=== PATIENT | female | born 1965 | race Two or more races ===

== ENCOUNTER 2021-04-25 15:49 | Outpatient (REF) | payer MEDICAID, OTHER, SELFPAY ==
--- NOTE | ~2021-04-25 | MM_ITS ---
EXAMINATION: MM SCREENING DIGITAL BREAST TOMOSYNTHESIS, BILATERAL CLINICAL INFORMATION: Screening. Asymptomatic. No known family history of breast cancer. The lifetime risk of breast cancer based on the Tyrer-Cuzick Model is 5%. COMPARISON: None. TECHNIQUE: Digital breast tomosynthesis is performed in both the craniocaudal and mediolateral oblique views. Synthesized 2D images are generated from the tomosynthesis. FINDINGS: There are scattered areas of fibroglandular density (ACR BI-RADS breast composition Category b). There are no significant masses, abnormal calcifications, or other abnormalities. MM/MM tomosynthesis screening BI IMPRESSION: No mammographic evidence of malignancy. ASSESSMENT: BI-RADS 1: Negative RECOMMENDATION: Routine annual mammography screening. This patient's information was entered into a reminder system with a target due date for their next mammogram.
== END 2021-04-25 15:50 | disposition home or self-care (01) ==
LOC: HO.MAMMO 15:49
PROVIDERS: Visit Provider Nurse Practitioner
DX: Z12.31 Encounter for screening mammogram for malignant neoplasm of breast (principal)
CPT/HCPCS: 77063; 77067

== ENCOUNTER 2022-06-18 08:26 | Outpatient (REF) | payer OTHER, SELFPAY ==
[2022-06-18 11:02] LABS: MANUAL DIFF FLAG NO
[2022-06-18 11:22] LABS: Basophils Percent Auto 0.2 % (0-2); Eosinophils Absolute Auto 0.1 X10*3/uL (0.0-0.4); Eosinophils Percent Auto 0.9 % (0-4); Hematocrit 40.8 % (37.0-47.0); Hemoglobin 13.7 g/dl (12.0-16.0); Imm Gran Abs Auto 0.03 X10*3/uL (0.00-0.03); Imm Gran Pct Auto 0.3 % (0.0-0.4); Lymphocytes Percent Auto 23.2 % (20-40); Mean Corpuscular HGB Conc 33.6 g/dl (31.0-35.0); Mean Corpuscular Hemoglobin 26.7 pg (27.0-33.0); Mean Corpuscular Volume 79.4 fL (80.0-98.0); Mean Platelet Volume 10.6 fL (9.4-12.3); Monocytes Absolute Auto 0.7 X10*3/uL (0.1-1.2); Monocytes Percent Auto 7.5 % (2-11); Neutrophils Absolute Auto 5.9 x10*3/uL (2.0-8.3); Neutrophils Percent Auto 67.9 % (45-73); Platelet Count 395 X10*3/uL (160-400); Red Blood Count 5.14 X10*6/uL (4.20-5.50); Red Cell Distribution Width 14.7 % (11.0-16.0); White Blood Count 8.7 X10*3/uL (4.8-10.8)
[2022-06-18 11:44] LABS: Alanine Aminotransferase 17 U/L (0-31); Albumin Level 4.5 g/dL (3.5-5.0); Alkaline Phosphatase 73 U/L (39-117); Anion Gap 14 (12-20); Aspartate Amino Transferase 16 U/L (5-31); Bilirubin Total 0.7 mg/dL (0.0-1.0); Blood Urea Nitrogen 9 mg/dL (9-16); Calcium 9.9 mg/dL (8.4-10.2); Carbon Dioxide 27 mmol/L (22-29); Chloride 105 mmol/L (96-108); Cholesterol 195 mg/dL; Estimated Glomerular Filt Rate > 60; Glucose Fasting 107 mg/dL (60-99); HDL Cholesterol 57 mg/dL; LDL Cholesterol Calculated 124 mg/dl; Potassium 4.2 mmol/L (3.3-5.1); Sodium 142 mmol/L (135-145); Total Protein 7.7 g/dL (6.5-8.0); Triglycerides 73 mg/dL
[2022-06-18 12:30] LABS: TSH reflex Free T4 1.27 uIU/mL (0.32-4.0); Vitamin B12 > 2000 pg/mL (200-900)
[2022-06-24 23:14] LABS: Vitamin D 25-OH, D2 <4 ng/mL; Vitamin D 25-OH, D3 28 ng/mL; Vitamin D 25-OH, Total 28 ng/mL (30-100)
== END 2022-06-18 08:27 | disposition home or self-care (01) ==
LOC: HO.HMGCLDS 08:26
PROVIDERS: PCP Internal Medicine; Visit Provider Internal Medicine
DX: Z00.01 Encounter for general adult medical examination with abnormal findings (principal); E66.09 Other obesity due to excess calories; I10 Essential (primary) hypertension
CPT/HCPCS: 36415; 80053; 80061; 82306; 82607; 84443; 85025

== ENCOUNTER 2022-08-11 15:39 | Outpatient (REF) | payer OTHER, SELFPAY ==
--- NOTE | ~2022-08-11 | MM_ITS ---
EXAMINATION: MM SCREENING DIGITAL BREAST TOMOSYNTHESIS, BILATERAL CLINICAL INFORMATION: Screening. Asymptomatic. The lifetime risk of breast cancer based on the Tyrer-Cuzick Model is 5%. COMPARISON: Mammography: 04/25/2021 (new baseline) TECHNIQUE: Digital breast tomosynthesis is performed in both the craniocaudal and mediolateral oblique views along with computer-aided detection (CAD). Synthesized 2D images are generated from the tomosynthesis. FINDINGS: There are scattered areas of fibroglandular density (ACR BI-RADS breast composition Category b). Parenchymal pattern is similar to prior exam. There is no developing density or architectural abnormality. The axilla and skin contours are unremarkable. No significant changes. There are no significant masses, abnormal calcifications, or other abnormalities. The axilla and skin contours are unremarkable. No significant changes. MM/MM tomosynthesis screening BI IMPRESSION: No mammographic evidence of malignancy. ASSESSMENT: BI-RADS 1: Negative RECOMMENDATION: Routine annual mammography screening. This patient's information was entered into a reminder system with a target due date for their next mammogram.
== END 2022-08-11 15:40 | disposition home or self-care (01) ==
LOC: HO.MAMMO 15:39
PROVIDERS: PCP Internal Medicine; Visit Provider Internal Medicine
DX: Z12.31 Encounter for screening mammogram for malignant neoplasm of breast (principal)
CPT/HCPCS: 77063; 77067

== ENCOUNTER 2022-10-12 14:20 | Outpatient (AMB) | payer OTHER, SELFPAY ==
--- NOTE | 2022-10-12 14:34 | MHC.OFFVIS ---
Intake Vital Signs 10/12/22 14:36 Height 5 ft 1 in Weight 174 lb BMI 32.9 BP 126/88 Blood Pressure Location Rt brachial Position Sitting Intake Visit Reasons: NPV-other symptos inv apperance and behavior-Confi Intake Note: patient presents for new patient evaluation Allergies No Known Allergies Allergy (Verified 10/12/22 14:37) Medication List - Last Reconciled 10/12/22 by Elvia Arthur MD amlodipine 10 mg PO DAILY bisoprolol fumarate 5 mg PO DAILY cholecalciferol (vitamin D3) 25 mcg PO DAILY 90 days losartan 50 mg PO DAILY HPI HPI Comments History of Present Illness Details A certified medical physics researcher Erin Saxena helped with todays appointment. 57y/o female comes for neurological evaluation .She moved from [facility] 2020 . she is accompanied by her daughter who also helps with the history . The patient was seen by neurologist in for behavior change and was diagnosed with dementia as per PCP notes . she was treated with Vitamins ?. The patient denies any memory issues. Her daughter reports that she is paranoid about her . she thinks he is not paying attention and is having an affair. Her problems started after she had a dental procedure last year and she started having paronia. she went back to diagnosed with Vit b 12 deficiency and treated. she is still very focused on her cheating on her. [facility] Medical History (Updated 10/12/22 @ 15:18 by Elvia Arthur MD) Cognitive and behavioral changes Snoring Surgical History H/O tubal ligation H/O: hysterectomy Social History Housing: House Alcohol intake: current Patient Tobacco Use Status: Never used Tobacco e-Cigarette/Vaping Use: Never Used Current occupational status: employed Cognitive needs: No Hearing needs: No Vision needs: Yes Review of Systems Const Denies chills and Denies fever(s) ENT Denies epistaxis and Denies nasal discharge Card Denies chest pain Resp Denies chest congestion, Denies cough and Denies hemoptysis GI Denies diarrhea and Denies nausea Skin/Breast Denies rash Neuro Reports no additional complaints Psych Reports no additional complaints Endo Reports no additional complaints Physical Exam Const General: cooperative, healthy appearing, comfortable and no acute distress Nutritional Appearance: overweight Orientation/consciousness: patient oriented x3 Eyes Pupils: Equal, round and reactive pupils present Neuro General: patient oriented x3, tone normal, moves all extremities and no focal motor deficits Cranial nerves: Yes Facial sensation intact/muscles of mastication intact, Yes Equal, round and reactive pupils present, No Bilaterally intact EOM present, Yes Nystagmus not present, Yes Normal facial strength present and Yes Midline tongue present Gait exam (Neuro): Normal gait present Motor exam (neuro): 5/5 motor strength present throughout and Normal motor muscle tone present throughout Deep tendon reflexes (DTR's): Right triceps reflex intensity grade: 1+, Left triceps reflex intensity grade: 1+, Rt Biceps (C5, C6): 1+, Left biceps reflex intensity grade: 1+, Right brachioradialis reflex intensity grade: 1+, Left brachioradialis reflex intensity grade: 1+ and Right patellar reflex intensity grade: 1+ Coordination: [id number] test normal Psych Appearance: grossly normal Affect: normal affect Orientation What is the (year) (season) (date) (day) (month)?: year, season, date, day and month Where are we (state) (county) (town or city) (hospital) (floor)?: state, county, town or city, hospital/clinic and floor Registration Name of 3 unrelated objects clearly and slowly, then ask patient to repeat all 3 of them. (1st repeat determines score. Make sure they can repeat all three): object 1, object 2 and object 3 Attention & Calculation (CHOOSE ONE) Spell WORLD backwards (DLROW): 3 letters Recall Ask patient to repeat the 3 items from question #3.: object 1 Language Show patient a wristwatch & ask what it is. Repeat for pencil.: watch and pencil Ask the patient to repeat the phrase 'No ifs, ands, or buts' after you.: correct Ask the patient to 'take a piece of paper with their right hand' 'fold paper in half' 'place paper on floor': take paper in right hand Print the sentence 'CLOSE YOUR EYES' on a piece. If patient actually closes eyes then score.: followed written direction Give patient a blank piece of paper & ask to write a sentence. Score if it contains a noun & verb.: sentence contains subject and verb Ask patient to copy figure of intersecting pentagons exactly. Score if all 10 angles & 2 intersects are included.: all 10 angles present & 2 are intersected Score Score: 24 Assessment & Plan Assessment & Plan (1) Cognitive and behavioral changes: Comment: paranoia Code(s): R41.89 - Other symptoms and signs involving cognitive functions and awareness; R46.89 - Other symptoms and signs involving appearance and behavior (2) Snoring: Code(s): R06.83 - Snoring Plan MRI Brain report for review, she did well on cognitive testing EEG Psychology referral consider sleep study Orders: Orders EEG electroencephalogram Today R41.89 - Other symptoms and signs involving cognitive functions and awareness, R46.89 - Other symptoms and signs involving appearance and behavior RT home sleep study Today R06.83 - Snoring, R41.89 - Other symptoms and signs involving cognitive functions and awareness, R46.89 - Other symptoms and signs involving appearance and behavior Coding Level of Care Code New Pt Level 4 (40556) Diagnoses Cognitive and behavioral changes R41.89; R46.89 Snoring R06.83
[2022-10-12 14:36] VITALS: BP 126/88; BMI 32.9
== END 2022-10-12 15:26 | disposition home or self-care (01) ==
LOC: HO.HSMS 14:20
PROVIDERS: PCP Internal Medicine; Visit Provider Psychiatry & Neurology Neurology
DX: R41.89 Other symptoms and signs involving cognitive functions and awareness (principal); R46.89 Other symptoms and signs involving appearance and behavior; R06.83 Snoring
CPT/HCPCS: 99204

== ENCOUNTER → 2022-10-12 14:20 | Outpatient (BNVA) | payer OTHER, SELFPAY | PROVIDERS: PCP Internal Medicine; Visit Provider Psychiatry & Neurology Neurology | DX: R41.89 Other symptoms and signs involving cognitive functions and awareness (principal); R46.89 Other symptoms and signs involving appearance and behavior; R06.83 Snoring | CPT/HCPCS: 99202 ==

== ENCOUNTER 2022-10-14 09:11 | Outpatient (AMB) | payer OTHER, SELFPAY ==
--- NOTE | 2022-10-14 09:30 | MHC.OFFWIV ---
Intake Vital Signs 10/14/22 09:37 Height 5 ft 1 in BP 128/78 Blood Pressure Location Lt brachial Position Sitting Pulse 74 Pulse Source Pulse Oximeter Temp 97.8 F Temp Source Temporal Artery Scan Pulse Oximetry (%) 98 Intake Visit Reasons: EP, Right Knee inflammation Intake Note: pt is here for right knee inflammation, started yesterday hopped out of truck and doesn't know if she pinched or hit something Patient Tobacco Use Status: Never used Tobacco Principal Investigator Required: Yes Principal Investigator Language: Senegalese Accompanied by: Self / Same As Patient Allergies No Known Allergies Allergy (Verified 10/14/22 09:59) Medication List - Last Reconciled 10/14/22 by GAURI Pierre amlodipine 10 mg PO DAILY bisoprolol fumarate 5 mg PO DAILY cholecalciferol (vitamin D3) 25 mcg PO DAILY 90 days losartan 50 mg PO DAILY Do you need a note to return to daycare/school/sports/work: No HPI HPI Comments History of Present Illness Details Here today with complaints of right knee pain that started last night. Reports walking to get into a car and upon entering the car experienced pain in the right knee. denies any overt injury or history of surgery on this knee. No at-home treatments rendered. Denies history of gout. [facility] Medical History (Updated 10/14/22 @ 09:59 by GAURI Pierre) Cognitive and behavioral changes Snoring Surgical History H/O tubal ligation H/O: hysterectomy Social History Housing: House Alcohol intake: current Patient Tobacco Use Status: Never used Tobacco e-Cigarette/Vaping Use: Never Used Current occupational status: employed Cognitive needs: No Hearing needs: No Vision needs: Yes Review of Systems Const All systems reviewed & are unremarkable except as noted in HPI and below Physical Exam Vital Signs: Last Vital Signs Temp 97.8 F 10/14/22 09:37 Pulse 74 10/14/22 09:37 BP 128/78 10/14/22 09:37 Pulse Ox 98 10/14/22 09:37 Const Other: Awake alert oriented in no acute distress accompanied by female right knee normal to observation, no erythema warmth edema or ecchymosis. pain with palpation medial aspect above below kneecap. full range of motion however does have pain with bending antalgic gait favoring the right side but is able to bear weight and walk without assist. Extrem Knee images: 1. pain with palpation 2. pain on palpation Assessment & Plan Assessment & Plan (1) Right medial knee pain: Code(s): M25.561 - Pain in right knee Orders: Orders XR knee RT 4V Today M25.561 - Pain in right knee Medications: New ibuprofen 600 mg PO Q8H 7 days PRN 21 tabs 0RF pain Patient Instructions: x-ray today. Will be called with results. Ibuprofen sent to local pharmacy to be used for pain relief. Until then recommended to avoid activities that worsen the pain. Gentle stretching and [id number] exercises. Coding Level of Care Code Est Pt Level 3 (73359) Diagnoses Right medial knee pain M25.561
[2022-10-14 09:37] VITALS: BP 128/78; PULSE 74; TEMP 36.6; O2SAT 98
== END 2022-10-14 10:42 | disposition home or self-care (01) ==
PROVIDERS: PCP Internal Medicine; Visit Provider Nurse Practitioner Family
DX: M25.561 Pain in right knee (principal)
CPT/HCPCS: 99213

== ENCOUNTER 2022-10-14 10:08 | Outpatient (REF) | payer OTHER, SELFPAY ==
--- NOTE | ~2022-10-14 | XR_ITS ---
EXAMINATION: XR KNEE, RIGHT CLINICAL INFORMATION: Right knee pain. COMPARISON: None available. TECHNIQUE: Four views of the right knee. FINDINGS: Alignment is anatomic. Joint spaces are maintained. No displaced fracture. Moderate suprapatellar joint effusion. XR/XR knee RT 4V IMPRESSION: Moderate suprapatellar joint effusion.
== END 2022-10-14 10:09 | disposition home or self-care (01) ==
LOC: HO.HMGCX 10:08
PROVIDERS: PCP Internal Medicine; Visit Provider Nurse Practitioner Family
DX: M25.561 Pain in right knee (principal)
CPT/HCPCS: 73564

== ENCOUNTER 2022-10-19 09:13 | Outpatient (AMB) | payer OTHER, SELFPAY ==
--- NOTE | 2022-10-19 09:28 | MHC.OFFVIS ---
Intake Vital Signs 10/19/22 09:31 Height 5 ft 1 in Weight 168 lb BMI 31.7 BP 142/70 H Blood Pressure Location Lt brachial Position Sitting Pulse 54 Intake Visit Reasons: colonoscopy screening Intake Note: New consult for 1st pre colonoscopy screening . Patient cc: constipation on an off, denies any other GI issues. 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 Her do not daughter accompanies her. Appetite is good- bowels ok- occasional constipation typically non issue. No known family history of GI cancers She has no respiratory or cardiac issues No nausea, vomiting, hematemesis, hematochezia fever or chills. No abdominal pain or rectal bleeding PFSH Medical History Cognitive and behavioral changes Snoring Surgical History H/O tubal ligation H/O: hysterectomy Social History Housing: House Alcohol intake: current Patient Tobacco Use Status: Never used Tobacco e-Cigarette/Vaping Use: Never Used Current occupational status: employed Cognitive needs: No Hearing needs: No Vision needs: Yes Review of Systems Const All systems reviewed & are unremarkable except as noted in HPI and below Card Denies chest pain and Denies dyspnea Resp Denies dyspnea GI Denies abdominal pain Physical Exam Vital Signs: Last Vital Signs Pulse 54 10/19/22 09:31 BP 142/70 H 10/19/22 09:31 BMI result Body Mass Index 31.7 Const General: cooperative, healthy appearing, comfortable and no acute distress Orientation/consciousness: patient oriented x3 Limitations: language barrier Eyes Sclerae: sclerae normal Resp Effort & Inspection: normal respiratory effort and able to speak in complete sentences Auscultation: clear to auscultation bilaterally and no wheezes Cardio Rate: regular rate Rhythm: regular rhythm Heart sounds: S1 normal heart sound present and S2 normal heart sound present GI Palpation (GI): Soft to palpation and nontender Auscultation: normal bowel sounds Skin General skin exam: no rashes or lesions noted Neuro General: patient oriented x3 Extrem General: Yes full ROM Psych Appearance: well kempt Mental Status: mental status grossly normal Speech and movement: Normal speech and movement present and Clear speech present Affect: normal affect Attitude: cooperative Thought process: Normal thought process present Thought content: Normal thought content present Insight: Good insight present (Psych) Judgement: Good judgement present (Psych) Assessment & Plan Assessment & Plan (1) Colon cancer screening: Comment: Occasional constipation, managed with diet Reinforce high-fiber diet Code(s): Z12.11 - Encounter for screening for malignant neoplasm of colon Plan: reviewed procedure/ prep/ need for escort/rare risks Plan Index screening colon- MG split Orders: Orders Colonoscopy - GI Use Only Today Z12.11 - Encounter for screening for malignant neoplasm of colon Medications: New bisacodyl (Dulcolax (bisacodyl)) Take 4 tablets by mouth at 12:00pm the day before your procedure. 20 mg (4 x 5 mg) PO ONCE 4 tabs 0RF colonoscopy prep 1 day Z12.11 - Encounter for screening for malignant neoplasm of colon polyethylene glycol 3350 (Miralax) Take as directed by mouth the day before your procedure. 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
[2022-10-19 09:31] VITALS: BP 142/70; PULSE 54; BMI 31.7
== END 2022-10-19 10:58 | disposition home or self-care (01) ==
PROVIDERS: Visit Provider Physician Assistant
DX: Z01.818 Encounter for other preprocedural examination (principal); Z12.11 Encounter for screening for malignant neoplasm of colon
CPT/HCPCS: 99203

== ENCOUNTER → 2022-10-19 09:13 | Outpatient (BNVA) | payer OTHER, SELFPAY | PROVIDERS: Visit Provider Physician Assistant | DX: Z01.818 Encounter for other preprocedural examination (principal) | CPT/HCPCS: 99202 ==

== ENCOUNTER 2022-10-29 13:30 | Outpatient (AMB) | payer OTHER, SELFPAY ==
--- NOTE | 2022-10-29 13:33 | MHC.OFFVIS ---
Intake Vital Signs 10/29/22 13:35 Height 5 ft 1 in Weight 171 lb BMI 32.3 BP 110/72 Intake Visit Reasons: New patient Annual/Eritrean Intake Note: The patient agreed to use of a medical education specialist during this encounter. Scribed for ZAEEM Juarez by Olimpia Millan medical education specialist, on 10/29/2022 at 1:50 pm EST. Field Artillery Senior Sergeant Required: Yes Field Artillery Senior Sergeant Language: Retail Leader Name: Myla VELIZ Information Interpreted: non-clinical & clinical Pineapple Plantation Manager: Pineapple Plantation Manager Present (Myla) Accompanied by: Daughter Allergies No Known Allergies Allergy (Verified 10/29/22 13:35) HPI HPI Comments History of Present Illness Details She is a postmenopausal woman presenting for annual exam. 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 Patient admits she tries to eat a healthy diet including Calcium and Vitamin D. She stays active with exercise. Currently sexually active. Denies vaginal itching, dryness and irritation. Denies family hx of breast, colon and ovarian cancer. Reports hysterectomy was due to fibroids; benign. Last pap smear; normal per pt. Last mammogram 08/11/22. UTD on colonoscopy. 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 Sexual orientation: Straight/Heterosexual Gender identity: Female Cognitive needs: No Hearing needs: No Vision needs: Yes Female Reproductive History Menstrual Menopause type: surgical (fibroma 2009) Total pregnancies: 3 Full term: 3 Number of Living Children: 3 Date of Mammogram: 08/11/22 Physical Exam Vital Signs: Last Vital Signs BP 110/72 10/29/22 13:35 BMI result Body Mass Index 32.3 Const General: cooperative, healthy appearing, no acute distress, well developed and alert Orientation/consciousness: patient oriented x3 HEENT Head: Yes normal to inspection Eyes General: appearance normal, both eyes and all related structures Neck Neck: Yes normal visual inspection Thyroid: Thyroid normal Chest Chest palpation & inspection: normal inspection of the chest Breast/axilla inspection: normal inspection of the breasts (no puckering, dimpling, peau de orange, retraction, discharge, masses) Breast/axilla palpation: normal palpation of the breasts Resp Effort & Inspection: normal respiratory effort GI Inspection: Yes normal to inspection Palpation (GI): Soft to palpation (to palpation) Rectal Exam - Female: deferred General: Yes bladder normal to inspection External Female Exam: normal external appearance and normal appearance of the urethra Speculum Exam - Vagina: normal appearance of the vagina, normal palpation and vagina atrophic Speculum Exam - Cervix: Cervix absent and Other cervical findings present (vag cuff; no lesions, no nodules) Bimanual exam- vagina & uterus: normal palpation and uterus absent Bimanual Exam- Adnexa, other: normal adnexae and no masses Skin General skin exam: no rashes or lesions noted Neuro General: patient oriented x3 Cognition (Neuro): normal cognition Extrem General: Yes normal to inspection Psych Attitude: cooperative Thought process: Normal thought process present Assessment & Plan Assessment & Plan (1) Encounter for well woman exam: Code(s): Z01.419 - Encounter for gynecological examination (general) (routine) without abnormal findings Plan: Discussed: Current recommendations for pap smears per ASCCP guidelines. Breast awareness and periodic self breast exams. Encouraged yearly mammograms. Maintaining a healthy lifestyle including a well balanced diet including Calcium and Vitamin D and routine exercise. All of her questions and concerns were addressed to the best of my ability RTO in 1 year for AG. Coding Level of Care Code New Pt Prev Care 40-64y(58033) Diagnoses Encounter for well woman exam Z01.419
[2022-10-29 13:35] VITALS: BP 110/72; BMI 32.3
== END 2022-10-29 14:02 | disposition home or self-care (01) ==
LOC: HO.HWS 13:30
PROVIDERS: PCP Internal Medicine; Visit Provider Advanced Practice Midwife
DX: Z01.419 Encounter for gynecological examination (general) (routine) without abnormal findings (principal)
CPT/HCPCS: 99386

== ENCOUNTER → 2022-10-29 13:30 | Outpatient (BNVA) | payer OTHER, SELFPAY | PROVIDERS: PCP Internal Medicine; Visit Provider Advanced Practice Midwife ==

== ENCOUNTER → 2022-11-23 15:04 | Outpatient (REF) | payer OTHER, SELFPAY | LOC: HO.SL 15:04 | PROVIDERS: PCP Internal Medicine; Visit Provider Psychiatry & Neurology Neurology | DX: R06.83 Snoring (principal); R41.89 Other symptoms and signs involving cognitive functions and awareness; R46.89 Other symptoms and signs involving appearance and behavior | CPT/HCPCS: 95806 ==

== ENCOUNTER → 2022-11-23 15:15 | Outpatient (BNV) | payer OTHER, SELFPAY | PROVIDERS: PCP Internal Medicine; Visit Provider Psychiatry & Neurology Neurology | DX: R06.83 Snoring (principal) | CPT/HCPCS: 95806 ==

== ENCOUNTER 2022-11-24 08:14 | Outpatient (REF) | payer OTHER, SELFPAY ==
--- NOTE | 2022-11-24 08:17 | EEG_ITS ---
FINDINGS: The waking background activity consists of low voltage fast frequencies seen diffusely intermixed with posterior low voltage 10 hertz alpha frequency. Photic stimulation is without activation. Hyperventilation was omitted. No sleep stages are identified. No focal, lateralizing, or paroxysmal discharges are seen. IMPRESSION: This waking EEG is within normal limits. MD JUSTUS Do/RAEGAN / [id number]
== END 2022-11-24 08:15 | disposition home or self-care (01) ==
LOC: HO.NEURO 08:14
PROVIDERS: PCP Internal Medicine; Visit Provider Psychiatry & Neurology Neurology
DX: R41.89 Other symptoms and signs involving cognitive functions and awareness (principal); R46.89 Other symptoms and signs involving appearance and behavior
CPT/HCPCS: 95816

== ENCOUNTER 2023-01-08 10:03 | Outpatient (AMB) | payer OTHER, SELFPAY ==
[2023-01-08 10:11] VITALS: BP 118/64; PULSE 83; O2SAT 97; BMI 32.9
--- NOTE | 2023-01-08 10:11 | MHC.PC.OV ---
Vital Signs 01/08/23 10:11 Height 5 ft 1 in Weight 174 lb 6 oz BMI 32.9 BP 118/64 Blood Pressure Location Rt brachial Position Sitting Pulse 83 Pulse Source Pulse Oximeter Pulse Oximetry (%) 97 Oxygen Delivery Method Room Air Intake Visit Reasons: 3m htn Allergies No Known Allergies Allergy (Verified 01/08/23 10:11) Medication List - Last Reconciled 01/08/23 by Mary Jones MD amlodipine 10 mg PO DAILY bisacodyl (Dulcolax (bisacodyl)) 20 mg (4 x 5 mg) PO ONCE 1 day bisoprolol fumarate 5 mg PO DAILY cholecalciferol (vitamin D3) 25 mcg PO DAILY 90 days ibuprofen 600 mg PO Q8H PRN 7 days losartan 50 mg PO DAILY polyethylene glycol 3350 (Miralax) 238 grams PO ONCE 1 day Tobacco use date assessed: 01/08/23 HPI 3m htn HPI Details Patient is a 57-year-old female came in today for her regular follow-up appointment Patient speaks only [place], translation was through staff member. She is doing well and is offer no complaints today. Blood pressure is 118/64 She is to continue amlodipine 10 mg and losartan 50 mg. Constipation is stable with MiraLax as needed. 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 51257 - PHQ-9 Billing: Patient declined-do not bill Source: Developed by Drs. Kevin Smith, Faith Cantrell, Jona Horn and colleagues, with an educational renate from [employer]. Thrive Questionnaire Date Thrive assessed: 01/08/23 I am a: Patient What is your living situation today?: I have a steady place to live Within the past 12 months, did the food you bought not last and you didn't have the money to get more?: Never true Within the past 12 months, did you worry whether your food would run out before you got money to buy more?: Never true Do you have trouble paying for medicines?: No Do you have trouble getting transportation to medical appointments?: No Do you have trouble paying your heating and electricity bill?: No Do you have trouble taking care of your child, family member or friend?: No Do you have trouble with day-to-day activities such as bathing, preparing meals, shopping, managing finances, etc.?: No Are you currently unemployed and looking for a job?: No Are you interested in more education?: No MARVIN-7 AMB Questionnaire MARVIN-7 Date MARVIN - 7 assessed: 01/08/23 Source: Developed by Drs. Kevin Smith, Faith Cantrell, Jona Horn and colleagues, with an educational renate from [employer]. MARVIN-7 Assessment Billing MARVIN-7 Assessment Tool: pt declined-do not bill Review of Systems Const Denies chills, Denies excessive sweating, Denies fever(s) and Denies poor appetite Eyes Denies blurry vision and Denies eye pain ENT Denies disequilibrium, Denies sore throat, Denies throat swelling and Denies tongue swelling Card Denies chest pain at rest, Denies radiating jaw, neck or arm pain and Denies paroxysmal nocturnal dyspnea Resp Denies cough and Denies hemoptysis GI Denies melena, Denies change in stool character, Denies coffee ground emesis and Denies vomiting Musc Reports as per HPI Skin/Breast Reports as per HPI Neuro Denies tremor(s) and Denies disequilibrium Endo Denies cold intolerance and Denies excessive sweating Aller/Immun Denies throat swelling and Denies tongue swelling Physical exam (Primary Care) Vital Signs: Last Vital Signs Pulse 83 01/08/23 10:11 BP 118/64 01/08/23 10:11 Pulse Ox 97 01/08/23 10:11 Oxygen Delivery Method Room Air 01/08/23 10:11 BMI result Body Mass Index 32.9 Tobacco/Smoking Status: Tobacco use Status Tobacco use date assessed 01/08/23 01/08/23 10:13 Patient Tobacco Use Status Never used Tobacco 01/08/23 10:13 e-Cigarette/Vaping Use Never Used 01/08/23 10:13 Thrive Assessment: Date of Thrive Assessment Date Thrive assessed 01/08/23 01/08/23 10:32 Const General: cooperative, comfortable and no acute distress Orientation/consciousness: patient oriented x3 HENMT Head: Yes normocephalic and Yes atraumatic Ears: hearing grossly normal bilaterally Eyes General: appearance normal, both eyes and all related structures Neck Neck: Yes no lymphadenopathy and No tracheal deviation Resp Effort & Inspection: normal respiratory effort, able to speak in complete sentences and no audible wheezes Cardio Rhythm: regular rhythm Heart sounds: S1 normal heart sound present and S2 normal heart sound present GI Palpation (GI): Soft to palpation and nontender Auscultation: normal bowel sounds Skin General skin exam: turgor normal Neuro General: patient oriented x3 and moves all extremities Gait exam (Neuro): Normal gait present Extrem Right lower extremity: no edema Left lower extremity: no edema Psych Affect: normal affect Attitude: cooperative Assessment and Plan Assessment & Plan (1) Hypertension, essential: Code(s): I10 - Essential (primary) hypertension (2) Obesity due to excess calories: Code(s): E66.09 - Other obesity due to excess calories Qualifiers: Obesity classification: adult class 1 (BMI 30 - 34.9) Serious obesity comorbidity presence: with serious comorbidity Body mass index: BMI 32.0-32.9 Qualified Code(s): E66.09 - Other obesity due to excess calories; Z68.32 - Body mass index [BMI] 32.0-32.9, adult (3) Vitamin D deficiency: Code(s): E55.9 - Vitamin D deficiency, unspecified (4) High serum vitamin B12: Code(s): R79.89 - Other specified abnormal findings of blood chemistry (5) Impaired fasting blood sugar: Code(s): R73.01 - Impaired fasting glucose Plan Patient is a 57-year-old female came in today for her regular follow-up appointment Patient speaks only [place], translation was through staff member. She is doing well and is offer no complaints today. Blood pressure is 118/64 She is to continue amlodipine 10 mg and losartan 50 mg. Constipation is stable with MiraLax as needed. Continue vitamin-D supplement Obesity: BMI is elevated at 32.9 patient need to lose weight Impaired fasting sugar: We will continue to monitor labs that Follow-up 4 months Coding Level of Care Code Est Pt Level 4 (89780) Diagnoses Hypertension, essential I10 Class 1 obesity due to excess calories with serious comorbidity and body mass index (BMI) of 32.0 to 32.9 in adult E66.09; Z68.32 Obesity classification: adult class 1 (BMI 30 - 34.9) Serious obesity comorbidity presence: with serious comorbidity Body mass index: BMI 32.0-32.9 Vitamin D deficiency E55.9 High serum vitamin B12 R79.89 Impaired fasting blood sugar R73.01
== END 2023-01-08 14:23 | disposition home or self-care (01) ==
PROVIDERS: PCP Internal Medicine; Visit Provider Internal Medicine
DX: I10 Essential (primary) hypertension (principal); E66.09 Other obesity due to excess calories; Z68.32 Body mass index [BMI] 32.0-32.9, adult; E55.9 Vitamin D deficiency, unspecified; R79.89 Other specified abnormal findings of blood chemistry; R73.01 Impaired fasting glucose
CPT/HCPCS: 99214

== ENCOUNTER 2023-01-22 11:16 | Outpatient (REF) | payer OTHER, SELFPAY ==
[2023-01-22 14:03] LABS: Alanine Aminotransferase 15 U/L (0-31); Albumin Level 4.4 g/dL (3.5-5.0); Alkaline Phosphatase 68 U/L (39-117); Anion Gap 13 (12-20); Aspartate Amino Transferase 18 U/L (5-31); Bilirubin Total 0.5 mg/dL (0.0-1.0); Blood Urea Nitrogen 9 mg/dL (9-16); Calcium 10.1 mg/dL (8.4-10.2); Carbon Dioxide 27 mmol/L (22-29); Chloride 103 mmol/L (96-108); Estimated Glomerular Filt Rate > 60; Glucose Random 94 mg/dL (60-115); Potassium 4.1 mmol/L (3.3-5.1); Sodium 139 mmol/L (135-145); Total Protein 7.9 g/dL (6.5-8.0)
[2023-01-22 14:13] LABS: Estimated Average Glucose 105 mg/dL; Hemoglobin A1c % 5.3 % (<6.0)
[2023-01-22 14:24] LABS: Vitamin B12 808 pg/mL (200-900)
[2023-01-27 13:44] LABS: Vitamin D 25-OH, D2 <4 ng/mL; Vitamin D 25-OH, D3 27 ng/mL; Vitamin D 25-OH, Total 27 ng/mL (30-100)
== END 2023-01-22 11:17 | disposition home or self-care (01) ==
LOC: HO.HMGCLDS 11:16
PROVIDERS: PCP Internal Medicine; Visit Provider Internal Medicine
DX: I10 Essential (primary) hypertension (principal); E66.09 Other obesity due to excess calories; E55.9 Vitamin D deficiency, unspecified; R79.89 Other specified abnormal findings of blood chemistry
CPT/HCPCS: 36415; 80053; 82306; 82607; 83036

== ENCOUNTER 2023-01-26 13:27 | Outpatient (AMB) | payer OTHER, SELFPAY ==
--- NOTE | 2023-01-26 13:37 | MHC.OFFVIS ---
Intake Vital Signs 01/26/23 13:39 Height 5 ft 1 in Weight 174 lb 4 oz BMI 32.9 BP 128/74 Blood Pressure Location Rt brachial Position Sitting Pulse 67 Pulse Source Pulse Oximeter Pulse Oximetry (%) 97 Oxygen Delivery Method Room Air Intake Visit Reasons: 3m f/u cognitive changes - Conf through CW Allergies No Known Allergies Allergy (Verified 01/26/23 13:43) HPI HPI Comments History of Present Illness Details 57 y/o female patient presents for follow up of cognitive changes. She is accompanied by her daughter who also helps with the history . The patient denies any memory issues. Pt's anxiety and depression have been manages well. She was evaluated by psychologist and will having follow up appointment. Pt had Vit b 12 deficiency and treated. The EEG result was WNL. The home sleep study result was also nomal sleep study. The AHI was less than 3 and average O2 sat was 95%. 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 Sexual orientation: Straight/Heterosexual Gender identity: Female Cognitive needs: No Hearing needs: No Vision needs: Yes Review of Systems Const All systems reviewed & are unremarkable except as noted in HPI and below Physical Exam Vital Signs: Last Vital Signs Pulse 67 01/26/23 13:39 BP 128/74 01/26/23 13:39 Pulse Ox 97 01/26/23 13:39 Oxygen Delivery Method Room Air 01/26/23 13:39 BMI result Body Mass Index 32.9 Const General: cooperative, healthy appearing, no acute distress, well developed and alert Orientation/consciousness: patient oriented x3 HEENT Head: Yes normal to inspection Eyes General: appearance normal, both eyes and all related structures Neck Neck: Yes normal visual inspection Thyroid: Thyroid normal Chest Chest palpation & inspection: normal inspection of the chest Breast/axilla inspection: normal inspection of the breasts (no puckering, dimpling, peau de orange, retraction, discharge, masses) Breast/axilla palpation: normal palpation of the breasts Resp Effort & Inspection: normal respiratory effort GI Inspection: Yes normal to inspection Palpation (GI): Soft to palpation (to palpation) Rectal Exam - Female: deferred General: Yes bladder normal to inspection External Female Exam: normal external appearance and normal appearance of the urethra Speculum Exam - Vagina: normal appearance of the vagina, normal palpation and vagina atrophic Speculum Exam - Cervix: Cervix absent and Other cervical findings present (vag cuff; no lesions, no nodules) Bimanual exam- vagina & uterus: normal palpation and uterus absent Bimanual Exam- Adnexa, other: normal adnexae and no masses Skin General skin exam: no rashes or lesions noted Neuro General: patient oriented x3 Cognition (Neuro): normal cognition Extrem General: Yes normal to inspection Psych Attitude: cooperative Thought process: Normal thought process present Assessment & Plan Assessment & Plan (1) Cognitive and behavioral changes: Comment: paranoia Code(s): R41.89 - Other symptoms and signs involving cognitive functions and awareness; R46.89 - Other symptoms and signs involving appearance and behavior (2) Snoring: Code(s): R06.83 - Snoring Plan Continue to follow up with psychology to manage anxiety and depression. Advised patient to have well balanced diet and daily exercise, 30 min walking daily. Coding Level of Care Code Est Pt Level 3 (33991) Diagnoses Cognitive and behavioral changes R41.89; R46.89 Snoring R06.83
[2023-01-26 13:39] VITALS: BP 128/74; PULSE 67; O2SAT 97; BMI 32.9
== END 2023-01-26 14:26 | disposition home or self-care (01) ==
PROVIDERS: PCP Internal Medicine; Visit Provider Nurse Practitioner Family
DX: R41.89 Other symptoms and signs involving cognitive functions and awareness (principal); R46.89 Other symptoms and signs involving appearance and behavior; R06.83 Snoring
CPT/HCPCS: 99213

== ENCOUNTER → 2023-01-26 13:27 | Outpatient (BNVA) | payer OTHER, SELFPAY | PROVIDERS: PCP Internal Medicine; Visit Provider Nurse Practitioner Family | DX: R41.89 Other symptoms and signs involving cognitive functions and awareness (principal); R46.89 Other symptoms and signs involving appearance and behavior; R06.83 Snoring | CPT/HCPCS: 99212 ==

== ENCOUNTER 2023-06-18 08:50 | Day surgery (SDC) | payer OTHER, SELFPAY ==
[2023-06-18 09:02] VITALS: BP 141/81; PULSE 73; RESP 20; TEMP 36.3; O2SAT 98; BMI 34.2
--- NOTE | 2023-06-18 09:17 | HO.ANESPROP2 ---
HPI - Anesthesia Eval Consult details Narrative: 57 yo female patient for Colonoscopy PMFSH Active Problems Active Problems: All Active Problems (Updated 06/18/23 @ 09:17 by Gilma Frank MD) Thoracic spine pain (Acute) Joint effusion of knee (Acute) Right medial knee pain (Acute) Impaired fasting blood sugar (Acute) High serum vitamin B12 (Acute) Vitamin D deficiency (Acute) Encounter for routine gynecological examination (Acute) Colon cancer screening (Acute) Change in behavior (Acute) Obesity due to excess calories (Acute) BMI 34.2 Hypertension, essential (Acute) Encounter for general adult medical examination with abnormal findings (Acute) Snoring (Acute)- Sleep study 12/02/22 - negative for ESTEBAN Cognitive and behavioral changes (Acute) Past Medical History Medical History HTN (hypertension) Snoring Cognitive and behavioral changes Family History Family history of problems with anesthesia: No Surgical History Surgical History H/O: hysterectomy H/O tubal ligation History of Problems with Anesthesia: No Social History Social History Housing: House Alcohol intake: current Alcohol intake frequency: holidays/special occasions only Patient Tobacco Use Status: Never used Tobacco e-Cigarette/Vaping Use: Never Used Are you DNR?: No Advance Directives: No Advance Directives Information Provided: Yes Recently lost weight without trying: No Current occupational status: employed 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 Sexual orientation: Straight/Heterosexual Gender identity: Female Cognitive needs: No Hearing needs: No Vision needs: Yes Meds Allergies Allergy/AdvReac Type Severity Reaction Status Date / Time No Known Allergies Allergy Verified 01/26/23 13:43 Active Medications: Current Medications Lactated Ringer's (Lr) 1,000 mls @ 50 mls/hr IVCONT .Q20H LAINEY Exam Height,Weight and Vital Signs: Height 5 ft 2 in Weight 84.912 kg Last Vital Signs Temp 97.3 F 06/18/23 09:02 Pulse 73 06/18/23 09:02 Resp 20 06/18/23 09:02 BP 141/81 H 06/18/23 09:02 Pulse Ox 98 06/18/23 09:02 O2 Del Method Room Air 03/15/24 09:02 Airway Mallampati Class: II TM Dist: >3cm Neck ROM: Full Loose/Missing/Broken Teeth: Yes (Missing many teeth. Denies broken or loose teeth) Heart: RRR Lungs: CTAB Assessment and Plan Assessment Anesthesia Assessment: Anesthesia Plan Discussed and Chart Reviewed Final Anesthetic Review Family History of Problems with Anesthesia: No History of Problems with Anesthesia: No NPO: Yes ASA Class: II Final Preanesthetic Review: No Changes in Pt Med Stat, Meds/Allgs Chart Reviewed, Consent Obtained/Reviewed and Anes Risks/Benef Reviewed Patient Risk: Low Procedure Risk: Low Assessment/Block/Sedation in SS: Assess/Block/Sedation-SS Anesthetic Plan Anesthetic Plan: MAC: and TIVA Disposition: Standard PACU
[2023-06-18] MEDS: Lactated Ringers 1,000 ML 50 ML IVCONT (09:20)
--- NOTE | 2023-06-18 10:09 | MHC.SHP ---
Pre-Procedural Eval Section A - 24 Hr Update-Section A only Date of Service: 06/18/23 The patient is an INPATIENT: No The patient has been examined within 24 hours of the surgical procedure. The History & Physical has been completed within 30 days and I have reviewed it.: No Section B - Complete if H&P > 30 days Chief Complaint: Colon cancer screening Relevant Family History (Specify if Yes): No Relevant Social History: None Present Medications: see Short Stay Collaborative assessment Medical History: Significant History (Cognitive and behavioral changes Snoring) History of Previous Operations: Relevant previous surgery/procedure and date(s) (H/O tubal ligation H/O: hysterectomy) Allergies: Allergies Allergy/AdvReac Type Severity Reaction Status Date / Time No Known Allergies Allergy Verified 01/26/23 13:43 Review of Systems Sugical H&P ROS: Negative: Constitution, Cardiovascular, Respiratory and Gastrointestinal Exam Surgical H&P Exam: Normal: Heart, Normal: Lungs, Normal: Extremities and Normal: Abdomen Plan Diagnosis/Plan: Unchanged I have reviewed the history and physical and performed a pertinent physical examination on my patient. No changes have occurred unless specified. Time Spent With Patient Time: Total time managing care of this patient today ____ minutes.
--- NOTE | 2023-06-18 10:39 | P.OP_ITS ---
Operative Note Operative Note Date of Service: 06/18/23 Narrative: COLONOSCOPY TILL CECUM WITH BIOPSIES Pre-op diagnosis: Colon cancer screening (1st colonoscopy). Post-op diagnosis:? Colon polyp, Diverticulosis. Endoscopist:? Oneyda Elizabeth MD Anesthesia:?MAC Consent: Indications for the procedure and potential complications of bleeding, perforation, reaction to medications and missed diagnosis were discussed with the patient with the help of an [facility] Indian splitter operator, Sue, and informed consent was obtained. Instrument: Olympus PCF H 190 L variable stiffness pediatric colonoscope Monitoring: Vital signs and clinical assessment, intermittent blood pressure monitoring, continuous EKG monitoring, Pulse oximetry and Carbon Dioxide monitoring were done throughout the procedure. Please see anesthesia flowsheet. Colon withdrawl time was 12 minutes. Procedure: The patient was placed in the left lateral decubitis position and pre-procedure medications were administered. After a digital rectal examination of the ano-rectum, the video colonoscope was inserted into the rectum and advanced through the colon to the cecum. The colonoscope was slowly withdrawn in a retrograde panoramic fashion and the colon mucosa was carefully examined including a retroflexed view of the rectum. Findings and interventions are described below. Procedure Difficulty: without difficulty Findings: Terminal Ileum: Not evaluated Cecum: Normal Ascending Colon: Normal Transverse Colon: Normal Descending Colon: A 4-5 mm sessile polyp - removed with a cold biopsy Sigmoid Colon: Moderate diverticulosis Rectum: Normal Ano-rectum: Normal Colon preparation: Excellent [place] Bowel Preparation Scale Right colon; 3 Transverse colon: 3 Left colon; 3 (0 = Unprepared colon segment with mucosa not seen due to solid stool that cannot be cleared. 1 = Portion of mucosa of the colon segment seen, but other areas of the colon segment not well seen due to staining, residual stool and/or opaque liquid. 2 = Minor amount of residual staining, small fragments of stool and/or opaque liquid, but mucosa of colon segment seen well. 3 = Entire mucosa of colon segment seen well with no residual staining, small fragments of stool or opaque liquid) Impression and Post Procedure Diagnosis: Colonoscopy Findings: One small polyp was removed (biopsies showed tubular adenoma) Moderate diverticulosis seen in the sigmoid colon Plan: Pt has a FU appointment on 06/30/23 with FRANC Barger Repeat Colonoscopy in 5 years if polyps are adenomatous and 10 year if polyps are hyperplastic. Relevant handouts were given and the discharge area.
[2023-06-18 11:09] VITALS: BP 114/73; PULSE 77; RESP 16; TEMP 36.4; O2SAT 98
[2023-06-18 11:24] VITALS: BP 120/66; PULSE 75; RESP 14; TEMP 36.4; O2SAT 100
[2023-06-18 11:38] VITALS: BP 135/63; PULSE 77; RESP 16; TEMP 36.3; O2SAT 100
== END 2023-06-18 11:41 | disposition home or self-care (01) ==
PROVIDERS: PCP Internal Medicine; Visit Provider Internal Medicine Gastroenterology
PROC: 0DJD8ZZ Inspection of Lower Intestinal Tract, Via Natural or Artificial Opening Endoscopic (ICD-10-PCS; CPT 45378; principal; 2023-06-18 10:30)
DX: Z12.11 Encounter for screening for malignant neoplasm of colon (principal); D12.4 Benign neoplasm of descending colon; K57.30 Diverticulosis of large intestine without perforation or abscess without bleeding; I10 Essential (primary) hypertension; R41.89 Other symptoms and signs involving cognitive functions and awareness; R06.83 Snoring; Z79.1 Long term (current) use of non-steroidal anti-inflammatories (NSAID); Z79.899 Other long term (current) drug therapy
CPT/HCPCS: 45380; 88305; J2704

== ENCOUNTER → 2023-06-18 08:50 | Outpatient (BNV) | payer OTHER, SELFPAY | PROVIDERS: PCP Internal Medicine; Visit Provider Internal Medicine Gastroenterology | DX: Z12.11 Encounter for screening for malignant neoplasm of colon (principal); D12.4 Benign neoplasm of descending colon; K57.30 Diverticulosis of large intestine without perforation or abscess without bleeding | CPT/HCPCS: 45380 ==

== ENCOUNTER 2023-06-23 14:13 | Outpatient (AMB) | payer OTHER, SELFPAY ==
--- NOTE | 2023-06-23 14:14 | A.OFFPC_ITS ---
Vital Signs 06/23/23 14:18 Height 5 ft 2 in Weight 175 lb 8 oz BMI 32.1 BP 116/74 Blood Pressure Location Rt brachial Position Sitting Pulse 67 Pulse Source Pulse Oximeter Pulse Oximetry (%) 96 Oxygen Delivery Method Room Air Intake Visit Reasons: Annual PE Allergies No Known Allergies Allergy (Verified 06/23/23 14:14) Medication List - Last Reconciled 06/23/23 by Mary Jones MD amlodipine 10 mg PO DAILY bisoprolol fumarate 5 mg PO DAILY cholecalciferol (vitamin D3) 25 mcg PO DAILY 90 days losartan 50 mg PO DAILY Tobacco use date assessed: 06/23/23 Dental Screening Dental Screen Date: 06/23/23 Did you have a dental visit in the last 12 months?: Yes Did you have a dental problem in the last 6 months where you did not have access to dental care?: No Was dental information given to patient?: Patient has dentist HPI Annual PE HPI Details Physical exam appointment Patient is a 58-year-old female, doing well She was evaluated by Neurology last year, and found to be depressed No dementia She was recommended to have therapy but patient does not wanted She is here with her daughter as patient does not speak much Haitian BMI is elevated at 32.1 need to lose weight We talked about exercise, at least walking 3 times a week 20 minutes She has appointment coming up to go over the colonoscopy report which showed 1 tubular adenoma Patient also have appointment with OBGYN and appointment for mammogram coming up Labs are needed to be done fasting Blood pressure is stable, continue medications Follow-up 4 months physical exam 1 year [facility] Medical History HTN (hypertension) Snoring Cognitive and behavioral changes Surgical History H/O: hysterectomy H/O tubal ligation Social History Housing: House Alcohol intake: current Alcohol intake frequency: holidays/special occasions only Patient Tobacco Use Status: Never used Tobacco e-Cigarette/Vaping Use: Never Used Current occupational status: employed 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 How often do you have a drink containing alcohol?: Never 3. How often do you have six or more drinks on one occasion?: Never Total Score: 0 Score Reviewed/Action Taken: Yes MARVIN-7 AMB Questionnaire MARVIN-7 Date MARVIN - 7 assessed: 01/08/23 Source: Developed by Drs. Kevin Smith, Faith Cantrell, Jona Horn and colleagues, with an educational renate from [employer]. Review of Systems Const Denies chills, Denies fever(s) and Denies headache(s) Eyes Denies blurry vision ENT Denies headache(s), Denies nasal discharge, Denies nasal obstruction, Denies odynophagia and Denies sinus pain Card Denies chest pain at rest and Denies chest pain with activity Resp Denies cough and Denies hemoptysis GI Denies diarrhea, Denies odynophagia, Denies vomiting and Denies hematemesis Reports as per HPI Musc Denies abnormal gait Skin/Breast Reports as per HPI Neuro Denies Neuro-related abnormal movements, Denies Abnormal speech present, Denies abnormal gait, Denies headache(s) and Denies Sensory deficit (Neuro) Psych Denies mood swings and Denies paranoia Endo Reports as per HPI Benjamin/Lymph Reports as per HPI Aller/Immun Reports as per HPI Physical exam (Primary Care) Vital Signs: Last Vital Signs Pulse 67 06/23/23 14:18 BP 116/74 06/23/23 14:18 Pulse Ox 96 06/23/23 14:18 Oxygen Delivery Method Room Air 06/23/23 14:18 BMI result Body Mass Index 32.1 Tobacco/Smoking Status: Tobacco use Status Tobacco use date assessed 06/23/23 06/23/23 14:15 Patient Tobacco Use Status Never used Tobacco 06/23/23 14:15 e-Cigarette/Vaping Use Never Used 06/23/23 14:15 Thrive Assessment: Date of Thrive Assessment Date Thrive assessed 01/08/23 06/23/23 14:15 Const General: cooperative, comfortable and no acute distress Orientation/consciousness: patient oriented x3 HENMT Head: Yes normocephalic and Yes atraumatic Eyes General: appearance normal, both eyes and all related structures Pupils: Equal, round and reactive pupils present EOM: EOMs intact bilaterally Neck Neck: Yes supple and No lymphadenopathy Thyroid: Thyroid normal Lymphatic: no lymphadenopathy noted Resp Effort & Inspection: normal respiratory effort and able to speak in complete sentences Auscultation: clear to auscultation bilaterally Cardio Heart sounds: S1 normal heart sound present and S2 normal heart sound present GI Palpation (GI): Soft to palpation and nontender Auscultation: normal bowel sounds General: Yes no CVA tenderness Back/Spine/Pelvis Back: no CVA tenderness Skin General skin exam: elasticity normal and turgor normal Neuro General: patient oriented x3 and gait normal Cranial nerves: Yes Equal, round and reactive pupils present Speech: No Abnormal speech present Sensory Exam: No Sensory deficit (Neuro) Coordination: tandem gait normal and Romberg test negative Extrem General: Yes normal exam except as noted and No edema Assessment and Plan Assessment & Plan (1) Encounter for general adult medical examination with abnormal findings: Code(s): Z00.01 - Encounter for general adult medical examination with abnormal findings (2) Hypertension, essential: Code(s): I10 - Essential (primary) hypertension (3) Obesity due to excess calories: Code(s): E66.09 - Other obesity due to excess calories Qualifiers: Body mass index: BMI 32.0-32.9 Obesity classification: adult class 1 (BMI 30 - 34.9) Serious obesity comorbidity presence: with serious comorbidity Qualified Code(s): E66.09 - Other obesity due to excess calories; Z68.32 - Body mass index [BMI] 32.0-32.9, adult (4) Vitamin D deficiency: Code(s): E55.9 - Vitamin D deficiency, unspecified (5) Impaired fasting blood sugar: Code(s): R73.01 - Impaired fasting glucose Plan Physical exam appointment Patient is a 58-year-old female, doing well She was evaluated by Neurology last year, and found to be depressed No dementia She was recommended to have therapy but patient does not wanted She is here with her daughter as patient does not speak much Haitian BMI is elevated at 32.1 need to lose weight We talked about exercise, at least walking 3 times a week 20 minutes She has appointment coming up to go over the colonoscopy report which showed 1 tubular adenoma Patient also have appointment with OBGYN and appointment for mammogram coming up Labs are needed to be done fasting Blood pressure is stable, continue medications Follow-up 4 months physical exam 1 year Orders: Orders Vitamin D 25-OH (D2 and D3) Today E55.9 - Vitamin D deficiency, unspecified, E66.09 - Other obesity due to excess calories, I10 - Essential (primary) hypertension, R73.01 - Impaired fasting glucose, Z00.01 - Encounter for general adult medical examination with abnormal findings Complete Blood Count Auto Diff Today E55.9 - Vitamin D deficiency, unspecified, E66.09 - Other obesity due to excess calories, I10 - Essential (primary) hypertension, R73.01 - Impaired fasting glucose, Z00.01 - Encounter for general adult medical examination with abnormal findings Comprehensive [place]. Panel Fast Today E55.9 - Vitamin D deficiency, unspecified, E66.09 - Other obesity due to excess calories, I10 - Essential (primary) hypertension, R73.01 - Impaired fasting glucose, Z00.01 - Encounter for general adult medical examination with abnormal findings Lipid Panel Today E55.9 - Vitamin D deficiency, unspecified, E66.09 - Other obesity due to excess calories, I10 - Essential (primary) hypertension, R73.01 - Impaired fasting glucose, Z00.01 - Encounter for general adult medical examination with abnormal findings TSH reflex Free T4 Today E55.9 - Vitamin D deficiency, unspecified, E66.09 - Other obesity due to excess calories, I10 - Essential (primary) hypertension, R73.01 - Impaired fasting glucose, Z00.01 - Encounter for general adult medical examination with abnormal findings Coding Level of Care Code Est Pt Prev Care 40-64y(06577) Diagnoses Encounter for general adult medical examination with abnormal findings Z00.01 Hypertension, essential I10 Class 1 obesity due to excess calories with serious comorbidity and body mass index (BMI) of 32.0 to 32.9 in adult E66.09; Z68.32 Body mass index: BMI 32.0-32.9 Obesity classification: adult class 1 (BMI 30 - 34.9) Serious obesity comorbidity presence: with serious comorbidity Vitamin D deficiency E55.9 Impaired fasting blood sugar R73.01
[2023-06-23 14:18] VITALS: BP 116/74; PULSE 67; O2SAT 96; BMI 32.1
== END 2023-06-23 14:48 | disposition home or self-care (01) ==
PROVIDERS: Visit Provider Internal Medicine
DX: Z00.01 Encounter for general adult medical examination with abnormal findings (principal); I10 Essential (primary) hypertension; E66.09 Other obesity due to excess calories; Z68.32 Body mass index [BMI] 32.0-32.9, adult; E55.9 Vitamin D deficiency, unspecified; R73.01 Impaired fasting glucose
CPT/HCPCS: 99396

== ENCOUNTER 2023-08-10 07:28 | Outpatient (REF) | payer OTHER, SELFPAY ==
[2023-08-10 10:19] LABS: MANUAL DIFF FLAG NO
[2023-08-10 10:42] LABS: Alanine Aminotransferase 15 U/L (0-31); Albumin Level 4.2 g/dL (3.5-5.0); Alkaline Phosphatase 67 U/L (39-117); Anion Gap 14 (12-20); Aspartate Amino Transferase 17 U/L (5-31); Basophils Percent Auto 0.6 % (0-2); Bilirubin Total 0.4 mg/dL (0.0-1.0); Blood Urea Nitrogen 9 mg/dL (9-16); Calcium 10.1 mg/dL (8.4-10.2); Carbon Dioxide 27 mmol/L (22-29); Chloride 105 mmol/L (96-108); Cholesterol 183 mg/dL (<200); Eosinophils Absolute Auto 0.2 X10*3/uL (0.0-0.4); Estimated Glomerular Filt Rate > 60; Glucose Fasting 99 mg/dL (60-99); HDL Cholesterol 61 mg/dL (>40); Hematocrit 37.1 % (37.0-47.0); Hemoglobin 12.7 g/dl (12.0-16.0); Imm Gran Abs Auto 0.01 X10*3/uL (0.00-0.03); Imm Gran Pct Auto 0.2 % (0.0-0.4); LDL Cholesterol Calculated 106 mg/dL (<100); Lymphocytes Absolute Auto 2.1 X10*3/uL (1.2-4.9); Lymphocytes Percent Auto 30.9 % (20-40); Mean Corpuscular HGB Conc 34.2 g/dl (31.0-35.0); Mean Corpuscular Hemoglobin 27.5 pg (27.0-33.0); Mean Corpuscular Volume 80.5 fL (80.0-98.0); Mean Platelet Volume 10.3 fL (9.4-12.3); Monocytes Absolute Auto 0.5 X10*3/uL (0.1-1.2); Monocytes Percent Auto 7.8 % (2-11); Neutrophils Absolute Auto 3.8 x10*3/uL (2.0-8.3); Neutrophils Percent Auto 57.5 % (45-73); Platelet Count 357 X10*3/uL (160-400); Potassium 4.1 mmol/L (3.3-5.1); Red Blood Count 4.61 X10*6/uL (4.20-5.50); Red Cell Distribution Width 14.6 % (11.0-16.0); Sodium 142 mmol/L (135-145); Total Protein 7.7 g/dL (6.5-8.0); Triglycerides 83 mg/dL (<150); White Blood Count 6.6 X10*3/uL (4.8-10.8)
[2023-08-10 10:59] LABS: TSH reflex Free T4 1.32 uIU/mL (0.32-4.0)
[2023-08-14 15:52] LABS: Vitamin D 25-OH, D2 <4 ng/mL; Vitamin D 25-OH, D3 27 ng/mL; Vitamin D 25-OH, Total 27 ng/mL (30-100)
== END 2023-08-10 07:29 | disposition home or self-care (01) ==
LOC: HO.HMGCLDS 07:28
PROVIDERS: PCP Internal Medicine; Visit Provider Internal Medicine
DX: Z00.01 Encounter for general adult medical examination with abnormal findings (principal); E66.09 Other obesity due to excess calories; E55.9 Vitamin D deficiency, unspecified; R73.01 Impaired fasting glucose; I10 Essential (primary) hypertension
CPT/HCPCS: 36415; 80053; 80061; 82306; 84443; 85025

== ENCOUNTER 2023-08-17 14:37 | Outpatient (REF) | payer OTHER, SELFPAY | END 2023-08-17 14:38 | disposition home or self-care (01) | LOC: HO.MAMMO 14:37 | PROVIDERS: PCP Internal Medicine; Visit Provider Internal Medicine | DX: Z12.31 Encounter for screening mammogram for malignant neoplasm of breast (principal) | CPT/HCPCS: 77063; 77067 ==

== ENCOUNTER → 2023-08-17 15:30 | Outpatient (BNV) | payer OTHER, SELFPAY | PROVIDERS: PCP Internal Medicine; Visit Provider Radiology Diagnostic Radiology | DX: Z12.31 Encounter for screening mammogram for malignant neoplasm of breast (principal) | CPT/HCPCS: 77063; 77067 ==

== ENCOUNTER 2024-07-12 14:14 | Outpatient (AMB) | payer OTHER, SELFPAY ==
[2024-07-12 14:20] VITALS: BP 122/80; BMI 34.5
--- NOTE | 2024-07-12 14:20 | A.OFFPC_ITS ---
Vital Signs 07/12/24 14:20 Height 5 ft 2 in Weight 188 lb 8 oz BMI 34.5 BP 122/80 Blood Pressure Location Lt brachial Position Sitting Intake Visit Reasons: Annual PE Ornamenter Hand Required: Yes Ornamenter Hand Name: #[id number], Delfin Allergies No Known Allergies Allergy (Verified 07/12/24 14:21) Medication List - Last Reconciled 07/12/24 by Mary Jones MD amlodipine 10 mg PO DAILY bisoprolol fumarate 5 mg PO DAILY cholecalciferol (vitamin D3) 25 mcg PO DAILY 90 days losartan 50 mg PO DAILY Tobacco use date assessed: 07/12/24 Dental Screening Dental Screen Date: 07/12/24 Did you have a dental visit in the last 12 months?: Yes Did you have a dental problem in the last 6 months where you did not have access to dental care?: No Was dental information given to patient?: Patient has dentist HPI Annual PE HPI Details Patient is 69-year-old female speaks only Chadian Interview was taken with the help of professional payroll benefits administrator Came in today for physical exam Last time seen was 1 year ago Patient was notified that she should come in and see me at least every 4 months She is having a problem today She is experiencing acid reflux especially at night We talked about the diet control I would recommend that she goes to bed empty stomach and avoid eating foods which is acidic like fast up pizza and citrus I am starting her on pantoprazole 20 mg to be taken on empty stomach at night Patient had colonoscopy last year which showed 1 tubular adenoma Next colonoscopy will be in 2028 She is due for mammogram in August And she is due for OBGYN visit, last time she is seen OBGYN was in 2022 Telephone number provided and referral placed patient is to call in book her appointment Lab order placed to be done fasting Patient is also prediabetic, notified I would recommend that she lose weight her BMI is 34.5 Patient states that she is trying Follow-up 3 months physical exam 1 year [facility] Medical History HTN (hypertension) Snoring Cognitive and behavioral changes Surgical History H/O: hysterectomy H/O tubal ligation Social History Housing: House Alcohol intake: current Alcohol intake frequency: holidays/special occasions only Patient Tobacco Use Status: Never used Tobacco e-Cigarette/Vaping Use: Never Used Current occupational status: employed 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 Sexual orientation: Straight/Heterosexual Gender identity: Female Cognitive needs: No Hearing needs: No Vision needs: Yes Questionnaire Thrive Questionnaire Date Thrive assessed: 07/11/24 I am a: Patient What is your living situation today?: I have a steady place to live Within the past 12 months, did the food you bought not last and you didn't have the money to get more?: Never true Within the past 12 months, did you worry whether your food would run out before you got money to buy more?: Never true Do you have trouble paying for medicines?: No Do you have trouble getting transportation to medical appointments?: No Do you have trouble paying your heating and electricity bill?: No Do you have trouble taking care of your child, family member or friend?: No Do you have trouble with day-to-day activities such as bathing, preparing meals, shopping, managing finances, etc.?: No Are you currently unemployed and looking for a job?: No Are you interested in more education?: No Please select the resources that you would like help with: None Currently or been in a relationship where the following occur: No concerns reported THRIVE Score: 0 AUDIT C Alcohol Use Questionnaire (AUDIT-C) 1. How often do you have a drink containing alcohol?: Monthly or less 2. How many drinks containing alcohol do you have on a typical day when you are drinking?: 1 or 2 3. How often do you have six or more drinks on one occasion?: Never Total Score: 1 MARVIN-7 AMB Questionnaire MARVIN-7 Date MARVIN - 7 assessed: 01/08/23 Feeling nervous, anxious, or on edge: 0 = Not at all Not being able to stop or control worryin = Not at all Worrying too much about different things: 0 = Not at all Trouble relaxin = Not at all Being so restless that it is hard to sit still: 0 = Not at all Becoming easily annoyed or irritable: 0 = Not at all Feeling afraid as if something awful might happen: 0 = Not at all Total MARVIN-7 score (0-4 normal; 5-9 mild; 10-14 moderate; 15-21 severe): 0 Source: Developed by Drs. Kevin Smith, Faith Cantrell, Jona Horn and colleagues, with an educational renate from [employer]. Review of Systems Const Denies chills, Denies fever(s) and Denies headache(s) Eyes Denies blurry vision ENT Denies headache(s), Denies nasal discharge, Denies nasal obstruction, Denies odynophagia and Denies sinus pain Card Denies chest pain at rest and Denies chest pain with activity Resp Denies cough and Denies hemoptysis GI Denies diarrhea, Denies odynophagia, Denies vomiting and Denies hematemesis Reports as per HPI Musc Denies abnormal gait Skin/Breast Reports as per HPI Neuro Denies Neuro-related abnormal movements, Denies Abnormal speech present, Denies abnormal gait, Denies headache(s) and Denies Sensory deficit (Neuro) Psych Denies mood swings and Denies paranoia Endo Reports as per HPI Benjamin/Lymph Reports as per HPI Aller/Immun Reports as per HPI Physical exam (Primary Care) Vital Signs: Last Vital Signs BP 122/80 07/12/24 14:20 BMI result Body Mass Index 34.5 Tobacco/Smoking Status: Tobacco use Status Tobacco use date assessed 07/12/24 07/12/24 14:21 Patient Tobacco Use Status Never used Tobacco 07/12/24 14:21 e-Cigarette/Vaping Use Never Used 07/12/24 14:21 Thrive Assessment: Date of Thrive Assessment Date Thrive assessed 07/11/24 07/12/24 14:21 Currently or been in a relationship where the following occur: No concerns reported Const General: cooperative, comfortable and no acute distress Orientation/consciousness: patient oriented x3 HENMT Head: Yes normocephalic and Yes atraumatic Eyes General: appearance normal, both eyes and all related structures Pupils: Equal, round and reactive pupils present EOM: EOMs intact bilaterally Neck Neck: Yes supple and No lymphadenopathy Thyroid: Thyroid normal Lymphatic: no lymphadenopathy noted Resp Effort & Inspection: normal respiratory effort and able to speak in complete sentences Auscultation: clear to auscultation bilaterally Cardio Heart sounds: S1 normal heart sound present and S2 normal heart sound present GI Palpation (GI): Soft to palpation and nontender Auscultation: normal bowel sounds General: Yes no CVA tenderness Back/Spine/Pelvis Back: no CVA tenderness Skin General skin exam: elasticity normal and turgor normal Neuro General: patient oriented x3 and gait normal Cranial nerves: Yes Equal, round and reactive pupils present Speech: No Abnormal speech present Sensory Exam: No Sensory deficit (Neuro) Coordination: tandem gait normal and Romberg test negative Extrem General: Yes normal exam except as noted and No edema Coding Level of Care Code Est Pt Level 3 (75231) Est Pt Prev Care 40-64y(45155) Diagnoses Encounter for general adult medical examination with abnormal findings Z00.01 Hypertension, essential I10 Class 1 obesity due to excess calories with serious comorbidity and body mass index (BMI) of 32.0 to 32.9 in adult E66.09; Z68.32 Body mass index: BMI 32.0-32.9 Obesity classification: adult class 1 (BMI 30 - 34.9) Serious obesity comorbidity presence: with serious comorbidity Vitamin D deficiency E55.9 Impaired fasting blood sugar R73.01 Assessment & Plan Assessment & Plan (1) Encounter for general adult medical examination with abnormal findings: Code(s): Z00.01 - Encounter for general adult medical examination with abnormal findings Category: Medical (2) Hypertension, essential: Code(s): I10 - Essential (primary) hypertension Category: Medical (3) Obesity due to excess calories: Code(s): E66.09 - Other obesity due to excess calories Category: Medical Qualifiers: Body mass index: BMI 32.0-32.9 Obesity classification: adult class 1 (BMI 30 - 34.9) Serious obesity comorbidity presence: with serious comorbidity Qualified Code(s): E66.09 - Other obesity due to excess calories; Z68.32 - Body mass index [BMI] 32.0-32.9, adult (4) Vitamin D deficiency: Code(s): E55.9 - Vitamin D deficiency, unspecified Category: Medical (5) Impaired fasting blood sugar: Code(s): R73.01 - Impaired fasting glucose Category: Medical Plan Patient is 69-year-old female speaks only Chadian Interview was taken with the help of professional payroll benefits administrator Came in today for physical exam Last time seen was 1 year ago Patient was notified that she should come in and see me at least every 4 months She is having a problem today She is experiencing acid reflux especially at night We talked about the diet control I would recommend that she goes to bed empty stomach and avoid eating foods which is acidic like fast up pizza and citrus I am starting her on pantoprazole 20 mg to be taken on empty stomach at night Patient had colonoscopy last year which showed 1 tubular adenoma Next colonoscopy will be in 2028 She is due for mammogram in August And she is due for OBGYN visit, last time she is seen OBGYN was in 2022 Telephone number provided and referral placed patient is to call in book her appointment Lab order placed to be done fasting Patient is also prediabetic, notified I would recommend that she lose weight her BMI is 34.5 Patient states that she is trying Follow-up 3 months physical exam 1 year Orders: Orders MM tomosynthesis screening BI Today Z12.31 - Encounter for screening mammogram for malignant neoplasm of breast Complete Blood Count Auto Diff Today E55.9 - Vitamin D deficiency, unspecified, E66.09 - Other obesity due to excess calories, I10 - Essential (primary) hypertension, R73.01 - Impaired fasting glucose, Z00.01 - Encounter for general adult medical examination with abnormal findings, Z68.32 - Body mass index [BMI] 32.0-32.9, adult Comprehensive [place]. Panel Fast Today E55.9 - Vitamin D deficiency, unspecified, E66.09 - Other obesity due to excess calories, I10 - Essential (primary) hypertension, R73.01 - Impaired fasting glucose, Z00.01 - Encounter for general adult medical examination with abnormal findings, Z68.32 - Body mass index [BMI] 32.0-32.9, adult Lipid Panel Today E55.9 - Vitamin D deficiency, unspecified, E66.09 - Other obesity due to excess calories, I10 - Essential (primary) hypertension, R73.01 - Impaired fasting glucose, Z00.01 - Encounter for general adult medical examination with abnormal findings, Z68.32 - Body mass index [BMI] 32.0-32.9, adult Vitamin D 25-OH (D2 and D3) Today E55.9 - Vitamin D deficiency, unspecified, E66.09 - Other obesity due to excess calories, I10 - Essential (primary) hypertension, R73.01 - Impaired fasting glucose, Z00.01 - Encounter for general adult medical examination with abnormal findings, Z68.32 - Body mass index [BMI] 32.0-32.9, adult TSH reflex Free T4 Today E55.9 - Vitamin D deficiency, unspecified, E66.09 - Other obesity due to excess calories, I10 - Essential (primary) hypertension, R73.01 - Impaired fasting glucose, Z00.01 - Encounter for general adult medical examination with abnormal findings, Z68.32 - Body mass index [BMI] 32.0-32.9, adult Hemoglobin A1c Today R73.01 - Impaired fasting glucose Referrals EMERGENCY CARE ATTENDANT Referral Z01.419 - Encounter for gynecological examination (general) (routine) without abnormal findings Medications: New pantoprazole 20 mg PO DAILY 90 tabs 0RF
== END 2024-07-12 14:46 | disposition home or self-care (01) ==
LOC: HO.HMCC 14:14
PROVIDERS: PCP Internal Medicine; Visit Provider Internal Medicine
DX: Z00.01 Encounter for general adult medical examination with abnormal findings (principal); I10 Essential (primary) hypertension; E66.09 Other obesity due to excess calories; Z68.32 Body mass index [BMI] 32.0-32.9, adult; E55.9 Vitamin D deficiency, unspecified; R73.01 Impaired fasting glucose

== ENCOUNTER → 2024-07-12 14:14 | Outpatient (BNVA) | payer OTHER, SELFPAY | PROVIDERS: PCP Internal Medicine; Visit Provider Internal Medicine | DX: Z00.01 Encounter for general adult medical examination with abnormal findings (principal); I10 Essential (primary) hypertension; E66.09 Other obesity due to excess calories; Z68.32 Body mass index [BMI] 32.0-32.9, adult; E55.9 Vitamin D deficiency, unspecified; R73.01 Impaired fasting glucose | CPT/HCPCS: 99212; 99396 ==

== ENCOUNTER 2024-10-17 13:52 | Outpatient (REF) | payer OTHER, SELFPAY ==
[2024-10-17 16:25] LABS: MANUAL DIFF FLAG NO
[2024-10-17 16:34] LABS: Hematocrit 33.7 % (37.0-47.0); Hemoglobin 11.7 g/dl (12.0-16.0); Imm Gran Abs Auto 0.03 X10*3/uL (0.00-0.03); Imm Gran Pct Auto 0.4 % (0.0-0.4); Lymphocytes Absolute Auto 2.5 X10*3/uL (1.2-4.9); Mean Corpuscular HGB Conc 34.7 g/dl (31.0-35.0); Mean Corpuscular Hemoglobin 27.2 pg (27.0-33.0); Mean Corpuscular Volume 78.4 fL (80.0-98.0); NRBC Abs Auto 0.000 X10*3/uL (0.0-0.012); NRBC Pct Auto 0.0 /100WBC (0.0-0.2); Platelet Count 298 X10*3/uL (160-400); Red Blood Count 4.30 X10*6/uL (4.20-5.50); White Blood Count 8.0 X10*3/uL (4.8-10.8)
[2024-10-17 16:55] LABS: Hemoglobin A1C 141.2605 umol/L; Total Hemoglobin (HGBA1C) 3779.6953 umol/L
[2024-10-17 16:58] LABS: Alanine Aminotransferase 14 U/L (0-31); Albumin Level 4.5 g/dL (3.5-5.0); Alkaline Phosphatase 60 U/L (39-117); Anion Gap 13 (12-20); Aspartate Amino Transferase 22 U/L (5-31); Blood Urea Nitrogen 8 mg/dL (9-16); Calcium 9.2 mg/dL (8.4-10.2); Carbon Dioxide 26 mmol/L (22-29); Chloride 106 mmol/L (96-108); Cholesterol 170 mg/dL (<200); Estimated Glomerular Filt Rate > 60; HDL Cholesterol 53 mg/dL (>40); Potassium 3.4 mmol/L (3.3-5.1); Sodium 142 mmol/L (135-145); Total Protein 7.5 g/dL (6.5-8.0); Triglycerides 65 mg/dL (<150)
[2024-10-21 16:54] LABS: Vitamin D 25-OH, D2 <4 ng/mL; Vitamin D 25-OH, D3 36 ng/mL; Vitamin D 25-OH, Total 36 ng/mL (30-100)
== END 2024-10-17 13:53 | disposition home or self-care (01) ==
LOC: HO.HMGCLDS 13:52
PROVIDERS: PCP Internal Medicine; Visit Provider Internal Medicine
DX: H53.8 Other visual disturbances (principal); E66.09 Other obesity due to excess calories; Z68.32 Body mass index [BMI] 32.0-32.9, adult; E55.9 Vitamin D deficiency, unspecified; R73.01 Impaired fasting glucose; I10 Essential (primary) hypertension; Z00.01 Encounter for general adult medical examination with abnormal findings
CPT/HCPCS: 36415; 80053; 80061; 82306; 83036; 84443; 85025; 96127; 99212

== ENCOUNTER 2024-10-17 13:52 | Outpatient (AMB) | payer OTHER, SELFPAY ==
--- NOTE | 2024-10-17 13:56 | MHC.PC.OV ---
Vital Signs 10/17/24 13:57 Height 5 ft 2 in Weight 180 lb BMI 32.9 BP 126/80 Blood Pressure Location Lt brachial Position Sitting Pulse 78 Pulse Source Pulse Oximeter Pulse Oximetry (%) 98 Oxygen Delivery Method Room Air Intake Visit Reasons: 3m f/u Meter Reading Clerk Required: Yes Meter Reading Clerk Language: Martiniquais Allergies No Known Allergies Allergy (Verified 10/17/24 13:59) Medication List - Last Reviewed 10/17/24 by Bruce Coleman CMA amlodipine 10 mg PO DAILY bisoprolol fumarate 5 mg PO DAILY cholecalciferol (vitamin D3) 25 mcg PO DAILY 90 days losartan 50 mg PO DAILY pantoprazole 20 mg PO DAILY Tobacco use date assessed: 07/12/24 Dental Screening Dental Screen Date: 07/12/24 HPI 3m f/u HPI Details History - The patient is a 59-year-old female presenting with a follow-up visit for monitoring of hypertension management. Blood pressure well-controlled, and there have been no issues with taking prescribed medications. - Compliance with daily vitamin D supplementation was reported. - Ophthalmic concerns reported include a lack of a current certified legal investigator for monitoring conditions such as glaucoma and cataracts. There are some changes in vision described as blurring off and on by the patient Medical History: - Hypertension - chronic GERD - vitamin-D deficiency Patient Instructions - Continue taking all prescribed medications as directed. Amlodipine 10 mg, bisoprolol 5 mg, losartan 50 mg and pantoprazole 20 mg - Complete the blood test today as previously scheduled. - Ensure no food is consumed prior to the blood test. - Continue daily intake of Vitamin D. - Keep the appointment with the certified legal investigator to monitor eye health and discuss any concerns related to eyesight. Review of Systems - General: No fever no chills - Neurological: No headaches no dizziness - Ear nose throat: No sore throat no hearing difficulty no ear pain - Cardiovascular: No syncope, no chest pain, no palpitations - Gastrointestinal: No nausea vomiting or diarrhea - Endocrine: No polyuria polydipsia no heat intolerance - Genitourinary: No dysuria , no blood in urine Physical Exam General: No acute distress HEENT: Needs eye doctor appointment for eyesight check, monitor for glaucoma and cataract Neck: Supple Respiratory system: Able to talk in full sentences, no audible wheeze Cardiovascular: S1-S2 regular in rate and rhythm, Gastrointestinal: No pain Extremities: No new findings, no swelling 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 awake oriented x3 motor sensory intact Skin: Normal turgor PFSH Medical History HTN (hypertension) Snoring Cognitive and behavioral changes Surgical History H/O: hysterectomy H/O tubal ligation Social History Housing: House Alcohol intake: current Alcohol intake frequency: holidays/special occasions only Patient Tobacco Use Status: Never used Tobacco e-Cigarette/Vaping Use: Never Used Current occupational status: employed 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 1. Little interest or pleasure in doing things: not at all 2. Feeling down, depressed, or hopeless: not at all 3. Trouble falling or staying asleep, or sleeping too much: not at all 4. Feeling tired or having little energy: not at all 5. Poor appetite or overeating: not at all 6. Feeling bad about yourself - or that you are a failure or have let yourself or your family down: not at all 7. Trouble concentrating on things, such as reading the newspaper or watching television: not at all 8. Moving or speaking so slowly that other people could have noticed. Or the opposite - being so fidgety or restless that you have been moving around a lot more than usual: not at all 9. Thoughts that you would be better off or of hurting yourself in some way: not at all Total score: 0 Depression Screening Interpretation: Negative Depression Screening Done: Yes 75880 - PHQ-9 Billing: Yes Source: Developed by Drs. Kevin Smith, Faith Cantrell, Jona Horn and colleagues, with an educational renate from [employer]. Thrive Questionnaire Date Thrive assessed: 10/17/24 I am a: Patient What is your living situation today?: I have a steady place to live Within the past 12 months, did the food you bought not last and you didn't have the money to get more?: Never true Within the past 12 months, did you worry whether your food would run out before you got money to buy more?: Never true Do you have trouble paying for medicines?: No Do you have trouble getting transportation to medical appointments?: No Do you have trouble paying your heating and electricity bill?: No Do you have trouble taking care of your child, family member or friend?: No Do you have trouble with day-to-day activities such as bathing, preparing meals, shopping, managing finances, etc.?: No Are you currently unemployed and looking for a job?: No Are you interested in more education?: No Please select the resources that you would like help with: None Currently or been in a relationship where the following occur: No concerns reported THRIVE Score: 0 AUDIT C Alcohol Use Questionnaire (AUDIT-C) 1. How often do you have a drink containing alcohol?: Monthly or less 2. How many drinks containing alcohol do you have on a typical day when you are drinking?: 1 or 2 3. How often do you have six or more drinks on one occasion?: Never Total Score: 1 Score Reviewed/Action Taken: Yes MARVIN-7 AMB Questionnaire MARVIN-7 Date MARVIN - 7 assessed: 10/17/24 Feeling nervous, anxious, or on edge: 0 = Not at all Not being able to stop or control worryin = Not at all Worrying too much about different things: 0 = Not at all Trouble relaxin = Not at all Being so restless that it is hard to sit still: 0 = Not at all Becoming easily annoyed or irritable: 0 = Not at all Feeling afraid as if something awful might happen: 0 = Not at all Total MARVIN-7 score (0-4 normal; 5-9 mild; 10-14 moderate; 15-21 severe): 0 Source: Developed by Drs. Kevin Smith, Faith Cantrell, Jona Horn and colleagues, with an educational renate from [employer]. MARVIN-7 Assessment Billing MARVIN-7 Assessment Tool: MARVIN-7 Assessment 01803 Physical exam (Primary Care) Vital Signs: Last Vital Signs Pulse 78 10/17/24 13:57 BP 126/80 10/17/24 13:57 Pulse Ox 98 10/17/24 13:57 Oxygen Delivery Method Room Air 10/17/24 13:57 BMI result Body Mass Index 32.9 Tobacco/Smoking Status: Tobacco use Status Tobacco use date assessed 07/12/24 10/17/24 13:56 Patient Tobacco Use Status Never used Tobacco 10/17/24 13:56 e-Cigarette/Vaping Use Never Used 10/17/24 13:56 PHQ-9: PHQ-9 Score PHQ-9: Total score 0 10/17/24 14:01 Depression Screening Interpretation: Negative Thrive Assessment: Date of Thrive Assessment Date Thrive assessed 10/17/24 10/17/24 14:01 Currently or been in a relationship where the following occur: No concerns reported Coding Level of Care Code Est Pt Level 3 (04528) Diagnoses Blurring of vision H53.8 Hypertension, essential I10 Class 1 obesity due to excess calories with serious comorbidity and body mass index (BMI) of 32.0 to 32.9 in adult E66.09; Z68.32 Obesity classification: adult class 1 (BMI 30 - 34.9) Serious obesity comorbidity presence: with serious comorbidity Body mass index: BMI 32.0-32.9 Vitamin D deficiency E55.9 Impaired fasting blood sugar R73.01 Additional Codes MARVIN-7 Assessment Billing - MARVIN-7 Assessment Tool: MARVIN-7 Assessment 21748 ([id number]) PHQ-9 - 48579 - PHQ-9 Billing: Yes ([id number]) Assessment & Plan Assessment & Plan (1) Blurring of vision: Code(s): H53.8 - Other visual disturbances Category: Medical (2) Hypertension, essential: Code(s): I10 - Essential (primary) hypertension Category: Medical (3) Obesity due to excess calories: Code(s): E66.09 - Other obesity due to excess calories Category: Medical Qualifiers: Obesity classification: adult class 1 (BMI 30 - 34.9) Serious obesity comorbidity presence: with serious comorbidity Body mass index: BMI 32.0-32.9 Qualified Code(s): E66.09 - Other obesity due to excess calories; Z68.32 - Body mass index [BMI] 32.0-32.9, adult (4) Vitamin D deficiency: Code(s): E55.9 - Vitamin D deficiency, unspecified Category: Medical (5) Impaired fasting blood sugar: Code(s): R73.01 - Impaired fasting glucose Category: Medical Plan History - The patient is a 59-year-old female with a history of hypertension, impaired fasting sugar, chronic GERD and obesity, presenting with a follow-up visit for monitoring of hypertension management. Blood pressure well-controlled, and there have been no issues with taking prescribed medications. - Compliance with daily vitamin D supplementation was reported. - Ophthalmic concerns reported include a lack of a current certified legal investigator for monitoring conditions such as glaucoma and cataracts. There are some changes in vision described as blurring off and on by the patient Medical History: - Hypertension - chronic GERD - vitamin-D deficiency Patient Instructions - Continue taking all prescribed medications as directed. Amlodipine 10 mg, bisoprolol 5 mg, losartan 50 mg and pantoprazole 20 mg - Complete the blood test today as previously scheduled. - Ensure no food is consumed prior to the blood test. - Continue daily intake of Vitamin D. - Keep the appointment with the certified legal investigator to monitor eye health and discuss any concerns related to eyesight. Orders: Referrals Ophthalmology Referral H53.8 - Other visual disturbances
[2024-10-17 13:57] VITALS: BP 126/80; PULSE 78; O2SAT 98; BMI 32.9
--- OUTSIDE RECORDS SUMMARY | 2024-10-17 15:12 | XMS_ITS | Encounter Summary ---
Author Organization [employer] Address [address] [place] [address] Care Team Providers Care Vision Therapist Name Role Phone Carolyn Amezquita [facility] Primary Care Provider [phone] Encounter Details Date Type Department Care Team ([facility] st Contact Info) Description 06/01/2022 Orders Only [facility] [address] [place] [address] Beba Yun LPN Social History Tobacco Use Types Packs/Day Years Used Date Smoking Tobacco: Never Assessed Comments Unknown Sex and Gender Information Value Date Recorded Sex Assigned at Female 02/02/2022 10:39 AM EDT Legal Sex Female 10:39 AM EDT Gender Identity Female 02/02/2022 10:39 AM EDT Sexual Orientation Straight 02/02/2022 10 :39 AM EDT documented as of this encounter Plan of Treatment Not on file documented as of this encounter Visit Diagnoses Not on filedocumented in this encounter Care Teams Vision Therapist Relationship Specialty Start Date End Date Carolyn Amezquita FNP [address] [place] [id number] PCP - General Family Medicine 11/28/21 documented as of this encounter
== END 2024-10-17 14:21 | disposition home or self-care (01) ==
LOC: HO.HMCC 13:53
PROVIDERS: PCP Internal Medicine; Visit Provider Internal Medicine
DX: H53.8 Other visual disturbances (principal); I10 Essential (primary) hypertension; E66.09 Other obesity due to excess calories; Z68.32 Body mass index [BMI] 32.0-32.9, adult; E55.9 Vitamin D deficiency, unspecified; R73.01 Impaired fasting glucose